=== PATIENT | male | born 1965 | race Hispanic/Latino ===

== ENCOUNTER 2022-10-30 07:43 | Emergency (ER) | payer OTHER ==
[~2022-10-30] VITALS: Ht 167.6 cm; Wt 91.6 kg
[2022-10-30 08:16] VITALS: BP 138/80; PULSE 65; RESP 18; O2SAT 98
[2022-10-30] MEDS ORDERED: DEXAMETHASONE SOD PHOSPHATE 4 MG/ML 1ML VIAL IM ONE (09:30)
== END 2022-10-30 10:22 | disposition home or self-care (01) ==
LOC: EDH 07:43
DX: M25.562 Pain in left knee (principal); M17.12 Unilateral primary osteoarthritis, left knee; E11.9 Type 2 diabetes mellitus without complications; I10 Essential (primary) hypertension; Z95.5 Presence of coronary angioplasty implant and graft
CPT/HCPCS: 99283; 73562; 96372; J1100